=== PATIENT | female | born 1995 | race Two or more races ===

== ENCOUNTER 2017-03-24 13:16 | Emergency (ER) | payer SELFPAY ==
[~2017-03-24] VITALS: Ht 162.6 cm; Wt 6.8 kg
[2017-03-24] MEDS ORDERED: KEPPRA1000 MG ORAL (13:30)
[2017-03-24] MEDS ORDERED: PHENOBARBITAL60 MG ORAL (13:32)
[2017-03-24] MEDS ORDERED: DILANTIN100 MG ORAL ×2 (13:32)
--- NOTE | 2017-03-24 13:42 | Emergency Room Report ---
History of Present Illness General Chief Complaint: Abdominal Pain Source: Patient (Deniz Pedraza M.D.) Present Illness HPI 21-year-old female history of ? Borderline personality disorder, (used to cut herself ), seizures, small bowel obstruction several years ago x p/w abdominal pain for 3 days Patient states pain started gradually, localized to right lower quadrant, non radiating, sharp in nature, intermittent. No relieving or exacerbating factors. Severity is 5/10. Pt reports n/v, 2 episodes of nbnb vomiting, 2 episodes of watery non bloody diarrhea Denies fever, chills. Last menstrual period was finished in March 14 Denies abnormal vaginal discharge (Deniz Pedraza M.D.) Allergies: Coded Allergies: PENICILLINS (Verified Allergy, Severe, 03/24/17) IBUPROFEN (Verified Allergy, Intermediate, 03/24/17) Patient History Past Medical History: see triage record Past Surgical History: none Pertinent Family History: none Now: No Reviewed Nursing Documentation: PMH: Agreed, PSxH: Agreed (Deniz Pedraza M.D. ) Nursing Documentation-PMH Hx Cardiac Problems: No Hx Hypertension: No Hx Pacemaker: No Hx Asthma: No Hx COPD: No Hx Cerebrovascular Accident: No Hx Seizures: Yes (Deniz Pedraza M.D.) Review of Systems All Other Systems: negative except mentioned in HPI (Deniz Pedraza M.D.) Physical Exam Vital Signs Date Time Temp Pulse Resp B/P (MAP) Pulse Ox O2 Delivery O2 Flow Rate FiO2 03/24/17 13:10 98.1 120 18 112/68 98 Sp02 EP Interpretation: reviewed, normal General Appearance: alert, GCS 15, non-toxic, moderate distress Head: normocephalic, atraumatic Eyes: bilateral eye normal inspection, bilateral eye PERRL, bilateral eye EOMI ENT: normal ENT inspection, normal pharynx, normal voice, moist mucus membranes Neck: normal inspection, full range of motion, supple Respiratory: normal inspection, lungs clear, normal breath sounds, no respiratory distress, no retraction, no wheezing, speaking full sentences, chest symmetrical Cardiovascular #1: normal inspection, regular rate, rhythm, no edema, normal capillary refill Cardiovascular #2: 2+ radial (R), 2+ radial (L) Gastrointestinal: soft, non-distended, no guarding, other - Mid and right lower quadrant tenderness, no guarding or rebound, well-healed laparoscopic scars on abdomen, normal bowel sounds Genitourinary: no CVA tenderness Musculoskeletal: normal inspection, back normal, normal range of motion, non- tender Neurologic: normal inspection, alert, oriented x3, responsive, motor strength/ tone normal, sensory intact, normal gait, speech normal Psychiatric: normal inspection, judgement/insight normal, memory normal Skin: normal inspection, normal color, no rash, warm/dry, well hydrated, normal turgor, other - Cheloid/linear scars on bilateral forearms (Retino,Clairose M.D.) Medical Decision Making Diagnostic Impression: Primary Impression: Abdominal pain Qualified Codes: R10.84 - Generalized abdominal pain ER Course 21 yo F with abdominal pain Differential Diagnosis: Gastritis, gastroenteritis, cholecystitis, appendicitis, diverticulitis, SBO, UTI/pyelo Plan: Basic labs, ua, pain control, IVF CT abdopelvis ER course: Patient has remained stable during ED stay. Signed out patient to Dr. Grossman 21-year-old female with nausea vomiting right lower quadrant pain for 3 days Pending labs Pending CT abdomen pelvis Please note that this Emergency Department Report was dictated using [employer] agent technology software, occasionally this can lead to erroneous entry secondary to interpretation by the dictation equipment Laboratory Tests Test 03/24/17 13:40 White Blood Count 7.8 K/UL (4.8-10.8) Red Blood Count 4.91 M/UL (4.20-5.40) Hemoglobin 12.7 G/DL (12.0-16.0) Hematocrit 41.3 % (37.0-47.0) Mean Corpuscular Volume 84 FL (80-99) Mean Corpuscular Hemoglobin 25.8 PG (27.0-31.0) L Mean Corpuscular Hemoglobin Concent 30.7 G/DL (32.0-36.0) L Red Cell Distribution Width 20.4 % (11.6-14.8) H Platelet Count 257 K/UL (150-450) Mean Platelet Volume 9.1 FL (6.5-10.1) Neutrophils (%) (Auto) 70.6 % (45.0-75.0) Lymphocytes (%) (Auto) 19.4 % (20.0-45.0) L Monocytes (%) (Auto) 7.2 % (1.0-10.0) Eosinophils (%) (Auto) 2.1 % (0.0-3.0) Basophils (%) (Auto) 0.7 % (0.0-2.0) Urine Color Pale yellow Urine Appearance Clear Urine pH 7 (4.5-8.0) Urine Specific Forsan 1.010 (1.005-1.035) Urine Protein Negative (NEGATIVE) Urine Glucose (UA) Negative (NEGATIVE) Urine Ketones Negative (NEGATIVE) Urine Occult Blood Negative (NEGATIVE) Urine Nitrite Negative (NEGATIVE) Urine Bilirubin Negative (NEGATIVE) Urine Urobilinogen Normal MG/DL (0.0-1.0) Urine Leukocyte Esterase Negative (NEGATIVE) Urine HCG, Qualitative Negative Sodium Level 139 MMOL/L (136-145) Potassium Level 3.9 MMOL/L (3.5-5.1) Chloride Level 107 MMOL/L (98-107) Carbon Dioxide Level 24 MMOL/L (21-32) Anion Gap 8 (5-15) Blood Urea Nitrogen 12 mg/dL (7-18) Creatinine 0.5 MG/DL (0.55-1.30) L Estimate Glomerular Filtration Rate > 60 mL/min (>60) Glucose Level 80 MG/DL (74-106) Calcium Level 9.5 MG/DL (8.5-10.1) Total Bilirubin 0.2 MG/DL (0.2-1.0) Aspartate Amino Transferase (AST) 18 U/L (15-37) Alanine Aminotransferase (ALT) 17 U/L (12-78) Alkaline Phosphatase 108 U/L (46-116) Total Protein 7.3 G/DL (6.4-8.2) Albumin 3.6 G/DL (3.4-5.0) Globulin 3.7 g/dL Albumin/Globulin Ratio 1.0 (1.0-2.7) Lipase 117 U/L (73-393) (Deniz Pedraza M.D.) ER Course Received signout from Dr Pedraza at 230pm Labs reviewed: No leuks. Stable H&H. No LFT abnormalities Urine preg negative UA negative CTAP negative. ?likely s/p appy Serial abd exam improved No peritonitis DC home PMD followup in 2-3 days Return to ER for worsening symptoms (BRYON GROSSMAN M.D.) Last Vital Signs Date Time Temp Pulse Resp B/P (MAP) Pulse Ox O2 Delivery O2 Flow Rate FiO2 03/24/17 13:10 98.1 120 18 112/68 98 (Deniz Pedraza M.D.) Status: improved (BRYON GROSSMAN M.D.) Disposition: HOME, SELF-CARE Deniz Pedraza M.D. Mar 24, 2017 13:42 BRYON GROSSMAN M.D. Mar 24, 2017 16:26
[2017-03-24 14:14] LABS: BASOPHILS % (AUTO) 0.7 % (0.0-2.0); EOSINOPHILS % (AUTO) 2.1 % (0.0-3.0); LYMPHOCYTES % (AUTO) 19.4 % (20.0-45.0); MEAN CORPUSCULAR HEMOGLOBIN 25.8 PG (27.0-31.0); MEAN CORPUSCULAR HGB CONC 30.7 G/DL (32.0-36.0); MEAN CORPUSCULAR VOLUME 84 FL (80-99); MEAN PLATELET VOLUME 9.1 FL (6.5-10.1); MONOCYTES % (AUTO) 7.2 % (1.0-10.0); NEUTROPHILS % (AUTO) 70.6 % (45.0-75.0); PLATELET COUNT 257 K/UL (150-450); RED BLOOD COUNT 4.91 M/UL (4.20-5.40); RED CELL DISTRIBUTION WIDTH 20.4 % (11.6-14.8); WHITE BLOOD COUNT 7.8 K/UL (4.8-10.8)
[2017-03-24 14:15] LABS: APPEARANCE,URINE CLEAR; KETONES,URINE NEGATIVE (NEGATIVE); LEUKOCYTE ESTERASE ,URINE NEGATIVE (NEGATIVE); NITRITE,URINE NEGATIVE (NEGATIVE); PH,URINE 7 (4.5-8.0); PROTEIN,URINE NEGATIVE (NEGATIVE); UROBILINOGEN,URINE NORMAL MG/DL (0.0-1.0)
[2017-03-24] MEDS ORDERED: Metoclopramide 10mg/2ml Inj IVP ONE (14:30)
[2017-03-24 14:32] LABS: ALANINE AMINOTRANSFERASE 17 U/L (12-78); ANION GAP 8 (5-15); ASPARTATE AMINO TRANSFERASE 18 U/L (15-37); CALCIUM 9.5 MG/DL (8.5-10.1); CARBON DIOXIDE 24 MMOL/L (21-32); CHLORIDE 107 MMOL/L (98-107); CREATININE 0.5 MG/DL (0.55-1.30); GLOMERULAR FILTRATION RATE > 60 mL/min (>60); LIPASE 117 U/L (73-393); POTASSIUM 3.9 MMOL/L (3.5-5.1); SODIUM 139 MMOL/L (136-145); TOTAL PROTEIN 7.3 G/DL (6.4-8.2)
[2017-03-24 15:13] VITALS: BP 120/79
--- NOTE | 2017-03-24 15:50 | Diagnostic Imaging Report ---
Clinical Indication: Bowel pain for 3 days, localized right lower quadrant, nonradiating, sharp in nature, nausea and vomiting,. Technique: No oral contrast utilized, per emergency room physician request IV administration nonionic contrast. Venous phase spiral acquisition obtained through the abdomen and pelvis. Multiplanar reconstructions were generated. Total dose length product 1778 mGycm. CTDIvol(s) 16 and 16 mGy. Dose reduction achieved using automated exposure control Comparison: None Findings: Contrast opacification is delayed, as patient moved during initial scan and repeat scan was performed. The repeat scan also shows a slight degree of motion artifact with resultant mild image degradation, particularly in the lower abdomen. The appendix is not visualized. There is suggestion of surgical marta in the region of the appendix, so suspect prior appendectomy. There is no evidence of diverticulosis or diverticulitis. No small bowel distention. Small bowel loops are somewhat fluid-filled. The distal esophagus, stomach, duodenum are unremarkable. The liver demonstrates a subcentimeter low-attenuation lesion in segment 4B which is too small to characterize. No other focal liver abnormalities demonstrated. The gallbladder, bile ducts, pancreas, spleen, adrenals are unremarkable. The kidneys demonstrate anterior axis deviation bilaterally. They also demonstrate duplicated collecting systems bilaterally. The bladder is unremarkable. The uterus and ovaries are unremarkable. Included lung bases demonstrate an 8mm ovoid nodule at the right posterolateral lung base, image 16 of series 7. The bones demonstrate a unilateral left L5 pars interarticularis defect. No associated alignment abnormality. Impression: No acute abnormality demonstrated 8mm ovoid nodule right posterolateral lung base. Recommend followup CT in 6-12 months Probable prior appendectomy. Correlate with surgical history Subcentimeter low-attenuation lesion in segment IVb of the liver, too small to characterize. No further followup necessary Incidental finding unilateral left L5 pars interarticularis defect. No associated alignment abnormality The CT scanner at [facility] is accredited by the [employer] and the scans are performed using protocols designed to limit radiation exposure to as low as reasonably achievable to attain images of sufficient resolution adequate for diagnostic evaluation.
[2017-03-24 17:40] VITALS: BP 120/80
== END 2017-03-24 17:43 | disposition home or self-care (01) ==
LOC: EDBD 13:16 → EMR 14:21
DX: R10.31 Right lower quadrant pain (principal); R11.2 Nausea with vomiting, unspecified; Z88.0 Allergy status to penicillin; Z88.6 Allergy status to analgesic agent; Z86.69 Personal history of other diseases of the nervous system and sense organs
CPT/HCPCS: 36415; 74177; 80053; 81003; 81025; 83690; 85025; 96374; 96375; 99284; J2405; J2765; Q9967; S0028